=== PATIENT | female | born 1960 | race Caucasian/White ===

== ENCOUNTER 2017-03-09 08:42 | Inpatient (IN) | payer OTHER ==
--- NOTE | 2017-03-09 08:28 | PCM.PREANE ---
Preanesthetic Assessment - Anesthesia/Transfusion/Family Hx Anesthesia History: Prior Anesthesia Without Reaction Family History of Anesthesia Reaction: No Transfusion History: No Prior Transfusion(s) Intubation History: Unknown - Review of Systems General: No Symptoms (cold symptoms include congestion, cough.) Pulmonary: No Symptoms (Unspecified asthma,, TIMMY with CPAP noted), Cough (dry nonproductive) Cardiovascular: Palpitations (occasionally noted.), Dyspnea on Exertion (with use of inhaler noted at this time and symptoms resolve), Lightheadedness ( postural changes.) Gastrointestinal: No Symptoms (GERD), Constipation Neurological: No Symptoms Other: Reports: Easy Bruising, Sinus Problem (chronic rhinitis), Neck Pain ( slightly tender with extension.) - Physical Assessment NPO Status Date: 03/08/17 NPO Status Time: 20:30 Pulse: 81 O2 Sat by Pulse Oximetry: 97 Respiratory Rate: 16 Blood Pressure: 136/86 Temperature: 37.4 C Height: 1.5 m Weight: 95 kg ASA Class: 2 Mental Status: Alert & Oriented x3 Airway Class: Mallampati = 2 Dentition: Reports: Normal Dentition, Caries Thyro-Mental Finger Breadths: 3 Mouth Opening Finger Breadths: 3 ROM/Head Extension: Full Lungs: Clear to Auscultation, Normal Respiratory Effort Cardiovascular: Regular Rate, Regular Rhythm, No Murmurs - Lab Values: Laboratory Last Values MRSA (PCR) Negative 02/24/17 09:57 All lab values reviewed and noted and within acceptable ranges to proceed with scheduled procedure. - Imaging/EKG Impressions: EKG: SR rate=74, low voltage precordial leads CXR: normal - Allergies Allergies/Adverse Reactions: Allergies Allergy/AdvReac Type Severity Reaction Status Date / Time codeine Allergy Vomiting Verified 03/08/17 12:23 ibuprofen Allergy Shortness Verified 03/08/17 12:23 of Breath Penicillins Allergy Hives Verified 03/08/17 12:23 Sulfa (Sulfonamide Allergy Hives Verified 03/08/17 12:23 Antibiotics) - Anesthesia Plan Pre-Op Medication Ordered: None - Acknowledgements Anesthesia Type Planned: Spinal (with MAC) Pt an Appropriate Candidate for the Planned Anesthesia: Yes Alternatives and Risks of Anesthesia Discussed w Pt/Guardian: Yes Pt/Guardian Understands and Agrees with Anesthesia Plan: Yes PreAnesthesia Questionnaire HEENT History: Reports: Allergic Rhinitis Cardiovascular History: Reports: None Respiratory History: Reports: Asthma, Sleep Apnea Gastrointestinal History: Reports: Colon Polyp, GERD, Other (See Below) Other Gastrointestinal History: esophagitis Genitourinary History: Reports: None PICKER/PULLER History: Reports: Other (See Below) Other OB/BYN History: mucous polyp of cervix Other Musculoskeletal History: left radius ulna fracture, heel spur surgery Neurological History: Reports: None Psychiatric History: Reports: None Endocrine/Metabolic History: Reports: None Hematologic History: Reports: None Immunologic History: Reports: None Oncologic (Cancer) History: Reports: None Dermatologic History: Reports: Other (See Below) Other Dermatologic History: periorbital dermatitis - Past Surgical History Head Surgeries/Procedures: Reports: None HEENT Surgical History: Reports: Naso-Sinus Surgery, Tonsillectomy, Other (See Below) Other HEENT Surgeries/Procedures: nasal endoscopy, septoplasty, turbinate reduction, wears glasses Cardiovascular Surgical History: Reports: None Respiratory Surgical History: Reports: None GI Surgical History: Reports: Colonoscopy, EGD Female Surgical History: Reports: D&C Male Surgical History: Reports: None Endocrine Surgical History: Reports: None Neurological Surgical History: Reports: None Musculoskeletal Surgical History: Reports: None Oncologic Surgical History: Reports: None - SUBSTANCE USE Smoking Status *Q: Never Smoker Tobacco Use Within Last Twelve Months: No Second Hand Smoke Exposure: No Recreational Drug Use History: No - HOME MEDS Home Medications: Home Meds Albuterol [Ventolin HFA] 2 puff INH Q4H PRN 03/08/17 [History] Ca Carbonate/Vitamin D3/Vit K [Citracal Soft Chew] 1 tab PO DAILY 03/08/17 [ History] Cetirizine [ZyrTEC] 10 mg PO DAILY 03/08/17 [History] Fluticasone Propionate [Flonase] 2 puff INH DAILY 03/08/17 [History] Multivitamin [Daily Multiple Vitamin] 1 tab PO DAILY 03/08/17 [History] Omeprazole 40 mg PO DAILY 03/08/17 [History] Vit A/C/E AC/Znox/Cupric Oxide [Eye Vitamin-Minerals Tablet] 1 tab PO DAILY 09/17 [History] - CURRENT (IN HOUSE) MEDS Current Meds: Current Medications Bisacodyl (Dulcolax) 5 mg PO DAILY PRN PRN Reason: Constipation Morphine Sulfate 8 mg/Epinephrine HCl 0.3 mg/Cefuroxime Sodium 750 mg/Ketorolac Tromethamine 30 mg/Sodium Chloride 27.9 ml 0 mg .XX ONETIME ONE Stop: 03/09/17 07:11 Docusate Sodium (Colace) 100 mg PO BID [facility] [place] Famotidine (Pepcid) 20 mg PO Q12H [facility] [place] Lactated Ringer's (Ringers, Lactated) 1,000 mls @ 125 mls/hr IV ASDIRECTED [facility] [place] Cefazolin Sodium/Dextrose 2 gm (/ Premix) 50 mls @ 100 mls/hr IV Q8H [facility] Stop: 03/09/17 23:44 Lidocaine/Sodium Bicarbonate (Buffered Lidocaine 1% In Ns 8.4%) 0.25 ml IV ONETIME PRN PRN Reason: Prior to IV Start Magnesium Hydroxide (Milk Of Magnesia) 30 ml PO BID PRN PRN Reason: Constipation Morphine Sulfate (Morphine) 2 mg IVPUSH Q2H PRN PRN Reason: Breakthrough Pain Naloxone HCl (Narcan) 0.1 mg IVPUSH Q5M PRN PRN Reason: Oversedation Ondansetron HCl (Zofran) 4 mg IVPUSH Q6H PRN PRN Reason: Nausea/Vomiting Oxycodone/Acetaminophen (Percocet 325-5 Mg) 1 - 2 tab PO Q4H PRN PRN Reason: Pain Senna (Senna) 8.6 mg PO BID PRN PRN Reason: Constipation Sodium Chloride (Saline Flush) 10 ml FLUSH ASDIRECTED PRN PRN Reason: Keep Vein Open Discontinued Medications Cefazolin Sodium (Ancef) Confirm Administered Dose 2 gm .ROUTE .STK-MED ONE Stop: 03/09/17 07:26 Fentanyl (Sublimaze) Confirm Administered Dose 100 mcg .ROUTE .STK-MED ONE Stop: 03/09/17 07:26 Lidocaine HCl (Xylocaine-Mpf 1%) Confirm Administered Dose 6 mls @ as directed .ROUTE .STK-MED ONE Stop: 03/09/17 07:26 Midazolam HCl (Versed 1 Mg/Ml) Confirm Administered Dose 2 mg .ROUTE .STK-MED ONE Stop: 03/09/17 07:26 Morphine Sulfate (Duramorph Pf) Confirm Administered Dose 10 mg .ROUTE .STK-MED ONE Stop: 03/09/17 07:34 Ondansetron HCl (Zofran) Confirm Administered Dose 4 mg .ROUTE .STK-MED ONE Stop: 03/09/17 07:26 Phenylephrine HCl (Maurice-Synephrine) Confirm Administered Dose 10 mg .ROUTE .STK- MED ONE Stop: 03/09/17 07:26 Propofol (Diprivan 20 Ml) Confirm Administered Dose 400 mg .ROUTE .STK-MED ONE Stop: 03/09/17 07:26
[~2017-03-09 08:42] MED LIST: Bisacodyl 5 MG Tab PO PRN; Lactated Ringers 1,000 ML IV SCH; Lidocaine 1% 6 ML ONE; Lidocaine 1%/Sod Bicarbonate in NS 8.4% 1 ML Syringe IV PRN; Magnesium Hydroxide 400 MG/5 ML Susp 30 ML Cup PO PRN; Midazolam 1 MG/ML 2 ML SDV ONE; Morphine 2 MG/ML Syringe IVPUSH PRN; Morphine PF 10 MG/10 ML SDV ONE; Naloxone 0.4 MG/ML SDV IVPUSH PRN; Ondansetron 4 MG/2 ML SDV IVPUSH PRN; Ondansetron 4 MG/2 ML SDV ONE; Phenylephrine 1% 10 MG/ML SDV ONE; Propofol 200 MG/20 ML SDV ONE; Sennosides 8.6 MG Tab PO PRN; Sodium Chloride 0.9% 10 ML Syringe FLUSH PRN; fentaNYL 100 MCG/2 ML SDV ONE
[2017-03-09] MEDS ORDERED: ceFAZolin 1 GM Vial ONE ×2 (09:02→10:37)
[2017-03-09] MEDS ORDERED: Albuterol 0.083% 2.5 MG/3 ML Neb Soln NEB ONE (09:30)
[2017-03-09] MEDS ORDERED: Morphine 8 MG, EPINEPHrine 0.3 MG, Cefuroxime 750 MG, Ketorolac 30 MG, Sodium Chloride ... ONE ×5 (10:15)
[2017-03-09] MEDS ORDERED: Propofol 200 MG/20 ML SDV ONE ×2 (10:48→11:21)
[2017-03-09] MEDS: Iodine/Sodium Iodide 2% Tincture 30 ML Bottle ONE ×2 (10:50→11:08)
[2017-03-09] MEDS: ceFAZolin 1 GM Vial ONE ×2 (10:51→11:12)
[2017-03-09] MEDS: Bupivacaine 0.25% 30 ML SDV ONE ×2 (10:51→11:18)
[2017-03-09] MEDS: Morphine 8 MG, EPINEPHrine 0.3 MG, Cefuroxime 750 MG, Sodium Chloride 0.9% 27.9 ML ONE ×12 (10:51→13:36)
[2017-03-09] MEDS ORDERED: ePHEDrine 50 MG/ML SDV ONE (11:09)
[2017-03-09] MEDS: Vancomycin 1 GM SDV ONE ×3 (11:19→13:36)
[2017-03-09] MEDS ORDERED: FLU Vacc QS 2017-18 (6mos UP)/PF 60 MCG/0.5 ML Syringe IM ONE (11:45)
[2017-03-09] MEDS ORDERED: fentaNYL 100 MCG/2 ML SDV IVPUSH PRN (12:09)
--- NOTE | 2017-03-09 12:10 | PCM.POSTAN ---
POST ANESTHESIA ASSESSMENT - MENTAL STATUS Mental Status: Alert, Oriented - VITAL SIGNS Pulse Rate: 107 SaO2: 96 Resp Rate: 17 Blood Pressure: 113/44 Temperature: 36.1 C - RESPIRATORY Respiratory Status: Respiratory Rate WNL, Airway Patent, O2 Saturation Stable, Supplemental Oxygen - CARDIOVASCULAR CV Status: Pulse Rate WNL, Blood Pressure Stable - GASTROINTESTINAL GI Status: No Symptoms - PAIN Pain Score: 0 - POST OP HYDRATION Hydration Status: Adequate & Stable - OBSERVATIONS Free Text/Narrative:: no anesthesia complications noted
[2017-03-09] MEDS ORDERED: Albuterol 6.7 GM Inhaler **PTOM INH PRN (13:03)
--- NOTE | 2017-03-09 14:47 | PCM.CONSN ---
- General Info Date of Service: 03/09/17 Admission Dx/Problem (Free Text): 56 year old morbidly obese female presents after left total knee arthroplasty; the patient had a history of OA, L>R. The hospitalist service has been asked to management medical needs post op. At this time, the patient has no complaints. Functional Status: Reports: Pain Controlled, Tolerating Diet, Urinating - Review of Systems General: Reports: No Symptoms HEENT: Reports: No Symptoms Pulmonary: Reports: No Symptoms Cardiovascular: Reports: No Symptoms Gastrointestinal: Reports: Nausea Genitourinary: Reports: No Symptoms Musculoskeletal: Reports: No Symptoms Skin: Reports: No Symptoms Neurological: Reports: No Symptoms Psychiatric: Reports: No Symptoms - Patient Data Vitals - Most Recent: Last Vital Signs Temp 36.4 C 03/09/17 13:23 Pulse 98 03/09/17 12:15 Resp 14 03/09/17 13:00 BP 124/69 03/09/17 13:00 Pulse Ox 97 03/09/17 13:39 Weight - Most Recent: 95 kg I&O - Last 24 Hours: Intake & Output 03/08/17 03/09/17 03/09/17 22:59 06:59 14:59 Intake Total 125 Output Total 275 Balance -150 Med Orders - Current: Current Medications Albuterol (Proventil Hfa) 0 gm INH Q4H PRN PRN Reason: Shortness of Breath Bisacodyl (Dulcolax) 5 mg PO DAILY PRN PRN Reason: Constipation Docusate Sodium (Colace) 100 mg PO BID [facility] Famotidine (Pepcid) 20 mg PO Q12H [facility] Cefazolin Sodium/Dextrose 2 gm (/ Premix) 50 mls @ 100 mls/hr IV Q8H [facility] Stop: 03/10/17 10:59 Magnesium Hydroxide (Milk Of Magnesia) 30 ml PO BID PRN PRN Reason: Constipation Morphine Sulfate (Morphine) 2 mg IVPUSH Q2H PRN PRN Reason: Breakthrough Pain Naloxone HCl (Narcan) 0.1 mg IVPUSH Q5M PRN PRN Reason: Oversedation Ondansetron HCl (Zofran) 4 mg IVPUSH Q6H PRN PRN Reason: Nausea/Vomiting Oxycodone/Acetaminophen (Percocet 325-5 Mg) 1 - 2 tab PO Q4H PRN PRN Reason: Pain Cetirizine 10mg (Tablet) 0 each PO DAILY [facility] Veramyst 27.2mcg/ ([place]) 0 each NASBOTH DAILY [facility] Senna (Senna) 8.6 mg PO BID PRN PRN Reason: Constipation Sodium Chloride (Saline Flush) 10 ml FLUSH ASDIRECTED PRN PRN Reason: Keep Vein Open Discontinued Medications Albuterol (Proventil Neb Soln) 2.5 mg NEB ONETIME ONE Stop: 03/09/17 09:31 Last Admin: 03/09/17 09:18 Dose: 2.5 mg Bupivacaine HCl (Marcaine 0.25%) Confirm Administered Dose 30 ml .ROUTE .STK- MED ONE Stop: 03/09/17 09:03 Last Admin: 03/09/17 11:18 Dose: 30 ml Cefazolin Sodium (Ancef) Confirm Administered Dose 2 gm .ROUTE .STK-MED ONE Stop: 03/09/17 07:26 Last Admin: 03/09/17 11:12 Dose: 2 gm Cefazolin Sodium (Ancef) Confirm Administered Dose 2 gm .ROUTE .STK-MED ONE Stop: 03/09/17 09:03 Cefazolin Sodium (Ancef) Confirm Administered Dose 2 gm .ROUTE .STK-MED ONE Stop: 03/09/17 10:38 Morphine Sulfate 8 mg/Epinephrine HCl 0.3 mg/Cefuroxime Sodium 750 mg/Ketorolac Tromethamine 30 mg/Sodium Chloride 27.9 ml 0 mg .XX ONETIME ONE Stop: 03/09/17 10:16 Morphine Sulfate 8 mg/Epinephrine HCl 0.3 mg/Cefuroxime Sodium 750 mg/Sodium Chloride 27.9 ml 0 mg .XX ONETIME ONE Stop: 03/09/17 10:31 Last Admin: 03/09/17 13:36 Dose: Not Given Ephedrine Sulfate (Ephedrine Sulfate) Confirm Administered Dose 50 mg .ROUTE .STK-MED ONE Stop: 03/09/17 11:10 Fentanyl (Sublimaze) Confirm Administered Dose 100 mcg .ROUTE .STK-MED ONE Stop: 03/09/17 07:26 Fentanyl (Sublimaze) 50 mcg IVPUSH Q5M PRN PRN Reason: PAIN Stop: 03/09/17 14:00 Lactated Ringer's (Ringers, Lactated) 1,000 mls @ 125 mls/hr IV ASDIRECTED [facility] Last Admin: 03/09/17 09:15 Dose: 125 mls/hr Lidocaine HCl (Xylocaine-Mpf 1%) Confirm Administered Dose 6 mls @ as directed .ROUTE .STK-MED ONE Stop: 03/09/17 07:26 Influenza Virus Vaccine (Pharmacy To Dose - Influenza Vaccine) 1 each IM ONETIME ONE Stop: 03/09/17 11:40 Influenza Virus Vaccine (Flulaval Quad [id number]) 60 mcg IM .ONCE ONE Stop: 03/09/17 11:46 Iodine (Iodine 2% Mild Tincture) Confirm Administered Dose 30 ml .ROUTE .STK- MED ONE Stop: 03/09/17 09:03 Last Admin: 03/09/17 11:08 Dose: 18 ml Lidocaine/Sodium Bicarbonate (Buffered Lidocaine 1% In Ns 8.4%) 0.25 ml IV ONETIME PRN PRN Reason: Prior to IV Start Stop: 03/09/17 18:00 Last Admin: 03/09/17 09:14 Dose: 0.25 ml Midazolam HCl (Versed 1 Mg/Ml) Confirm Administered Dose 2 mg .ROUTE .STK-MED ONE Stop: 03/09/17 07:26 Morphine Sulfate (Duramorph Pf) Confirm Administered Dose 10 mg .ROUTE .STK-MED ONE Stop: 03/09/17 07:34 Ondansetron HCl (Zofran) Confirm Administered Dose 4 mg .ROUTE .STK-MED ONE Stop: 03/09/17 07:26 Phenylephrine HCl (Maurice-Synephrine) Confirm Administered Dose 10 mg .ROUTE .STK- MED ONE Stop: 03/09/17 07:26 Propofol (Diprivan 20 Ml) Confirm Administered Dose 400 mg .ROUTE .STK-MED ONE Stop: 03/09/17 07:26 Propofol (Diprivan 20 Ml) Confirm Administered Dose 200 mg .ROUTE .STK-MED ONE Stop: 03/09/17 10:49 Propofol (Diprivan 20 Ml) Confirm Administered Dose 200 mg .ROUTE .STK-MED ONE Stop: 03/09/17 11:22 Tranexamic Acid (Cyklokapron) Confirm Administered Dose 1,000 mg .ROUTE .STK- MED ONE Stop: 03/09/17 09:03 Last Admin: 03/09/17 11:26 Dose: 1,000 mg Vancomycin HCl (Vancomycin) 1 gm .XX ONETIME ONE Stop: 03/09/17 11:01 Last Admin: 03/09/17 13:36 Dose: Not Given - Exam Quality Assessment: Urine Catheter, DVT Prophylaxis General: Alert, Oriented, Cooperative, No Acute Distress HEENT: Pupils Equal, Pupils Reactive, EOMI Neck: Supple, Trachea Midline, No JVD Lungs: Normal Respiratory Effort, Decreased Breath Sounds Cardiovascular: Regular Rate, Regular Rhythm GI/Abdominal Exam: Normal Bowel Sounds, Soft, Non-Tender, No Organomegaly, No Distention (Female) Exam: Deferred Back Exam: Normal Inspection Extremities: Normal Inspection, No Pedal Edema Skin: Warm Wound/Incisions: Dressing Dry and Intact Neurological: No New Focal Deficit Psy/Mental Status: Alert, Normal Affect, Normal Mood Consult PN Assessment/Plan POD#: 0 Procedures: Procedures ELECTRIC CURRENT THERAPY (10/23/14) MANUAL THERAPY 1/> REG[facility] (03/27/15) PT EVALUATION (03/27/15) THERAPEUTIC EXERCISES (04/12/15) ULTRASOUND THERAPY (10/23/14) (1) Status post arthroscopy of left knee SNOMED Code(s): 786642670 Code(s): Z98.890 - OTHER SPECIFIED POSTPROCEDURAL STATES Priority: High Current Visit: Yes (2) Osteoarthritis of left knee SNOMED Code(s): 645646621186993 Code(s): M17.12 - UNILATERAL PRIMARY OSTEOARTHRITIS, LEFT KNEE Priority: High Current Visit: Yes Qualifiers: Osteoarthritis type: primary Qualified Code(s): M17.12 - Unilateral primary osteoarthritis, left knee (3) DJD (degenerative joint disease) of knee SNOMED Code(s): 818666262 Code(s): M17.10 - UNILATERAL PRIMARY OSTEOARTHRITIS, UNSPECIFIED KNEE Current Visit: Yes (4) TIMMY (obstructive sleep apnea) SNOMED Code(s): 91371461 Code(s): G47.33 - OBSTRUCTIVE SLEEP APNEA (ADULT) (PEDIATRIC) Priority: Medium Current Visit: No Problem List Initiated/Reviewed/Updated: Yes Plan: Impression: POD 0, left total knee arthroplasty Osteoarthritis TIMMY Morbid obesity Plan: DVT prophylaxis PT/OT/SW consult Home meds Daily labs
[2017-03-09] MEDS ORDERED: Ondansetron 4 MG/2 ML SDV IVPUSH ONE (15:03)
--- NOTE | 2017-03-09 15:38 | CR ---
Left knee: AP and lateral views of the left knee were obtained. Comparison: No previous study. Knee prosthesis is seen which has been recently placed. Components are aligned. Soft tissue air is identified. Underlying bony structures are intact. Impression: 1. Satisfactory radiographic appearance of recently placed left knee prosthesis. Diagnostic code #2
[2017-03-09] MEDS: ceFAZolin 2 GM in Premix Bag 1 BAG IV SCH (18:13)
[2017-03-09] MEDS ORDERED: diphenhydrAMINE 50 MG/ML SDV ONE (18:38)
[2017-03-09] MEDS: diphenhydrAMINE 50 MG/ML SDV IVPUSH ONE (18:45)
[2017-03-09] MEDS: Famotidine 20 MG Tab PO SCH (19:35)
[2017-03-09] MEDS ORDERED: Scopolamine 1.5 MG Transdermal Patch TRDERM PRN (19:44)
[2017-03-09] MEDS ORDERED: HYDROmorphone 1 MG/ML Syringe IM ONE (20:00)
[2017-03-09] MEDS ORDERED: Lactated Ringers 1,000 ML IV SCH (20:15)
[2017-03-09] MEDS: Promethazine 6.25 MG in Sodium Chloride 0.9% 50 ML IV ONE (20:54)
[2017-03-09] MEDS: Docusate Sodium 100 MG Cap PO SCH (21:36)
[2017-03-09] MEDS: Acetaminophen/oxyCODONE 325-5 MG Tab PO PRN (23:56)
[2017-03-10] MEDS: ceFAZolin 2 GM in Premix Bag 1 BAG IV SCH ×2 (02:30→10:35)
[2017-03-10] MEDS: Promethazine 6.25 MG in Sodium Chloride 0.9% 50 ML IV ONE (03:09)
[2017-03-10] MEDS: Famotidine 20 MG Tab PO SCH ×2 (03:10→08:55)
[2017-03-10] MEDS: Acetaminophen/oxyCODONE 325-5 MG Tab PO PRN ×3 (03:37→12:30)
--- NOTE | 2017-03-10 07:25 | PCM.CONSN ---
- General Info Date of Service: 03/10/17 Admission Dx/Problem (Free Text): Megan is seen this morning, POD #1 Lt TKA. She had nausea overnight, now improved but still there. Pain was increased overnight but improved this morning. She did well with PT per PT reports this am. No other new concerns. VSS. Functional Status: Reports: Pain Controlled, Tolerating Diet, Ambulating, Urinating, Incentive Spirometry. Denies: New Symptoms - Review of Systems General: Reports: No Symptoms HEENT: Reports: No Symptoms Pulmonary: Reports: No Symptoms Cardiovascular: Reports: No Symptoms Gastrointestinal: Reports: Nausea (improved this morning but still present). Denies: Abdominal Pain, Vomiting Genitourinary: Reports: No Symptoms Musculoskeletal: Reports: Leg Pain Skin: Reports: No Symptoms Neurological: Reports: No Symptoms Psychiatric: Reports: No Symptoms - Patient Data Vitals - Most Recent: Last Vital Signs Temp 97.9 F 03/09/17 19:31 Pulse 65 03/10/17 05:00 Resp 16 03/10/17 05:40 BP 139/61 03/10/17 02:32 Pulse Ox 97 03/10/17 05:40 Weight - Most Recent: 209 lb 7.026 oz I&O - Last 24 Hours: Intake & Output 03/09/17 03/10/17 03/10/17 22:59 06:59 14:59 Intake Total 655 3150 Output Total 1000 1200 Balance -345 1950 Med Orders - Current: Current Medications Albuterol (Proventil Hfa) 0 gm INH Q4H PRN PRN Reason: Shortness of Breath Bisacodyl (Dulcolax) 5 mg PO DAILY PRN PRN Reason: Constipation Docusate Sodium (Colace) 100 mg PO BID [facility] Last Admin: 03/09/17 21:36 Dose: Not Given Famotidine (Pepcid) 20 mg PO Q12H [facility] Last Admin: 03/10/17 03:10 Dose: Not Given Cefazolin Sodium/Dextrose 2 gm (/ Premix) 50 mls @ 100 mls/hr IV Q8H [facility] Stop: 03/10/17 10:59 Last Admin: 03/10/17 02:30 Dose: 100 mls/hr Magnesium Hydroxide (Milk Of Magnesia) 30 ml PO BID PRN PRN Reason: Constipation Morphine Sulfate (Morphine) 2 mg IVPUSH Q2H PRN PRN Reason: Breakthrough Pain Naloxone HCl (Narcan) 0.1 mg IVPUSH Q5M PRN PRN Reason: Oversedation Ondansetron HCl (Zofran) 4 mg IVPUSH Q6H PRN PRN Reason: Nausea/Vomiting Last Admin: 03/10/17 00:46 Dose: 4 mg Oxycodone/Acetaminophen (Percocet 325-5 Mg) 1 - 2 tab PO Q4H PRN PRN Reason: Pain Last Admin: 03/10/17 03:37 Dose: 2 tab Cetirizine 10mg (Tablet) 0 each PO DAILY [facility] Veramyst 27.2mcg/ ([place]) 0 each NASBOTH DAILY [facility] Scopolamine (Transderm-Scop) 1.5 mg TRDERM ONETIME PRN PRN Reason: Nausea Last Admin: 03/09/17 20:30 Dose: 1.5 mg Senna (Senna) 8.6 mg PO BID PRN PRN Reason: Constipation Sodium Chloride (Saline Flush) 10 ml FLUSH ASDIRECTED PRN PRN Reason: Keep Vein Open Last Admin: 03/09/17 14:56 Dose: 10 ml Discontinued Medications Albuterol (Proventil Neb Soln) 2.5 mg NEB ONETIME ONE Stop: 03/09/17 09:31 Last Admin: 03/09/17 09:18 Dose: 2.5 mg Bupivacaine HCl (Marcaine 0.25%) Confirm Administered Dose 30 ml .ROUTE .STK- MED ONE Stop: 03/09/17 09:03 Last Admin: 03/09/17 11:18 Dose: 30 ml Cefazolin Sodium (Ancef) Confirm Administered Dose 2 gm .ROUTE .STK-MED ONE Stop: 03/09/17 07:26 Last Admin: 03/09/17 11:12 Dose: 2 gm Cefazolin Sodium (Ancef) Confirm Administered Dose 2 gm .ROUTE .STK-MED ONE Stop: 03/09/17 09:03 Cefazolin Sodium (Ancef) Confirm Administered Dose 2 gm .ROUTE .STK-MED ONE Stop: 03/09/17 10:38 Morphine Sulfate 8 mg/Epinephrine HCl 0.3 mg/Cefuroxime Sodium 750 mg/Ketorolac Tromethamine 30 mg/Sodium Chloride 27.9 ml 0 mg .XX ONETIME ONE Stop: 03/09/17 10:16 Morphine Sulfate 8 mg/Epinephrine HCl 0.3 mg/Cefuroxime Sodium 750 mg/Sodium Chloride 27.9 ml 0 mg .XX ONETIME ONE Stop: 03/09/17 10:31 Last Admin: 03/09/17 13:36 Dose: Not Given Diphenhydramine HCl (Benadryl) 25 mg IVPUSH ONETIME ONE Stop: 03/09/17 18:38 Last Admin: 03/09/17 18:45 Dose: 25 mg Diphenhydramine HCl (Benadryl) Confirm Administered Dose 50 mg .ROUTE .STK-MED ONE Stop: 03/09/17 18:39 Last Admin: 03/10/17 03:07 Dose: Not Given Ephedrine Sulfate (Ephedrine Sulfate) Confirm Administered Dose 50 mg .ROUTE .STK-MED ONE Stop: 03/09/17 11:10 Fentanyl (Sublimaze) Confirm Administered Dose 100 mcg .ROUTE .STK-MED ONE Stop: 03/09/17 07:26 Fentanyl (Sublimaze) 50 mcg IVPUSH Q5M PRN PRN Reason: PAIN Stop: 03/09/17 14:00 Hydromorphone HCl (Dilaudid) 1 mg IM ONETIME ONE Stop: 03/09/17 20:01 Last Admin: 03/09/17 20:32 Dose: 1 mg Lactated Ringer's (Ringers, Lactated) 1,000 mls @ 125 mls/hr IV ASDIRECTED [facility] Last Admin: 03/09/17 09:15 Dose: 125 mls/hr Lidocaine HCl (Xylocaine-Mpf 1%) Confirm Administered Dose 6 mls @ as directed .ROUTE .STK-MED ONE Stop: 03/09/17 07:26 Promethazine HCl 6.25 mg/ (Sodium Chloride) 50.25 mls @ 100 mls/hr IV ONETIME ONE Stop: 03/09/17 19:41 Last Admin: 03/10/17 03:09 Dose: Not Given Lactated Ringer's (Ringers, Lactated) 1,000 mls @ 125 mls/hr IV ASDIRECTED [facility] Stop: 03/10/17 04:14 Last Admin: 03/09/17 20:25 Dose: 125 mls/hr Influenza Virus Vaccine (Pharmacy To Dose - Influenza Vaccine) 1 each IM ONETIME ONE Stop: 03/09/17 11:40 Last Admin: 03/09/17 17:31 Dose: Not Given Influenza Virus Vaccine (Flulaval Quad [id number]) 60 mcg IM .ONCE ONE Stop: 03/09/17 11:46 Iodine (Iodine 2% Mild Tincture) Confirm Administered Dose 30 ml .ROUTE .STK- MED ONE Stop: 03/09/17 09:03 Last Admin: 03/09/17 11:08 Dose: 18 ml Lidocaine/Sodium Bicarbonate (Buffered Lidocaine 1% In Ns 8.4%) 0.25 ml IV ONETIME PRN PRN Reason: Prior to IV Start Stop: 03/09/17 18:00 Last Admin: 03/09/17 09:14 Dose: 0.25 ml Midazolam HCl (Versed 1 Mg/Ml) Confirm Administered Dose 2 mg .ROUTE .STK-MED ONE Stop: 03/09/17 07:26 Morphine Sulfate (Duramorph Pf) Confirm Administered Dose 10 mg .ROUTE .STK-MED ONE Stop: 03/09/17 07:34 Ondansetron HCl (Zofran) Confirm Administered Dose 4 mg .ROUTE .STK-MED ONE Stop: 03/09/17 07:26 Ondansetron HCl (Zofran) 4 mg IVPUSH ONETIME ONE Stop: 03/09/17 15:04 Last Admin: 03/09/17 15:15 Dose: 4 mg Phenylephrine HCl (Maurice-Synephrine) Confirm Administered Dose 10 mg .ROUTE .STK- MED ONE Stop: 03/09/17 07:26 Propofol (Diprivan 20 Ml) Confirm Administered Dose 400 mg .ROUTE .STK-MED ONE Stop: 03/09/17 07:26 Propofol (Diprivan 20 Ml) Confirm Administered Dose 200 mg .ROUTE .STK-MED ONE Stop: 03/09/17 10:49 Propofol (Diprivan 20 Ml) Confirm Administered Dose 200 mg .ROUTE .STK-MED ONE Stop: 03/09/17 11:22 Tranexamic Acid (Cyklokapron) Confirm Administered Dose 1,000 mg .ROUTE .STK- MED ONE Stop: 03/09/17 09:03 Last Admin: 03/09/17 11:26 Dose: 1,000 mg Vancomycin HCl (Vancomycin) 1 gm .XX ONETIME ONE Stop: 03/09/17 11:01 Last Admin: 03/09/17 13:36 Dose: Not Given - Exam Quality Assessment: DVT Prophylaxis General: Alert, Oriented, Cooperative, No Acute Distress HEENT: Pupils Equal, EOMI, Mucous Membr. Moist/[place] Neck: Supple Lungs: Clear to Auscultation, Normal Respiratory Effort Cardiovascular: Regular Rate, Regular Rhythm GI/Abdominal Exam: Normal Bowel Sounds, Soft, Non-Tender (Female) Exam: Deferred Extremities: Normal Capillary Refill, Other (Teds and ice to LE) Peripheral Pulses: 2+: Dorsalis Pedis (L), Dorsalis Pedis (R) Neurological: No New Focal Deficit Psy/Mental Status: Alert, Normal Affect, Normal Mood Consult PN Assessment/Plan POD#: 1 Procedures: Procedures ELECTRIC CURRENT THERAPY (10/23/14) MANUAL THERAPY 1/> [facility] (03/27/15) PT EVALUATION (03/27/15) THERAPEUTIC EXERCISES (04/12/15) ULTRASOUND THERAPY (10/23/14) (1) S/P total knee arthroplasty SNOMED Code(s): 7923632299499, 3128643159497 Code(s): Z96.659 - PRESENCE OF UNSPECIFIED ARTIFICIAL KNEE JOINT Priority: High Current Visit: Yes Qualifiers: Laterality: left Qualified Code(s): Z96.652 - Presence of left artificial knee joint (2) Osteoarthritis of left knee SNOMED Code(s): 431282289770046 Code(s): M17.12 - UNILATERAL PRIMARY OSTEOARTHRITIS, LEFT KNEE Priority: High Current Visit: Yes Qualifiers: Osteoarthritis type: primary Qualified Code(s): M17.12 - Unilateral primary osteoarthritis, left knee (3) TIMMY (obstructive sleep apnea) SNOMED Code(s): 88795368 Code(s): G47.33 - OBSTRUCTIVE SLEEP APNEA (ADULT) (PEDIATRIC) Priority: Medium Current Visit: No Problem List Initiated/Reviewed/Updated: Yes Plan: I/P: S/P Lt TKA with Dr. Doshi, POD #1 -Pain management and DVT prophylax per primary team -PT/OT -RT/IS -Hgb 11.2 Postoperative nausea -Improved but still present -Will rx zofran for DC Chronic: TIMMY on cpap Other: GI prophylax CM/SW for assist with DC planning: patient doing well, plan for DC home from Hospitalist standpoint today with family if does well with PT/OT this morning and nausea is under control. Patient is Full Code status.
[2017-03-10] MEDS ORDERED: Ondansetron 4 MG Tab.DIS PO PRN (08:48)
[2017-03-10] MEDS: Docusate Sodium 100 MG Cap PO SCH (08:55)
[2017-03-10] MEDS ORDERED: CETIRIZINE 10MG TABLET PO SCH (09:00)
[2017-03-10] MEDS ORDERED: FLUTICASONE FUROATE NASBOTH SCH (09:00)
[2017-03-10] MEDS ORDERED: Aspirin 325 MG Tab.EC PO SCH (11:15)
[2017-03-10 12:43] VITALS: BP 133/68
--- NOTE | 2017-03-10 13:52 | PCM48HPAN ---
Post Anesthesia Note - EVALUATION WITHIN 48HRS OF ANESTHETIC Vital Signs in Normal Range: Yes Patient Participated in Evaluation: No (pt sleeping, no complaints from report from RN) Respiratory Function Stable: Yes Airway Patent: Yes Cardiovascular Function Stable: Yes Hydration Status Stable: Yes Pain Control Satisfactory: Yes Nausea and Vomiting Control Satisfactory: Yes Mental Status Recovered: Yes
--- NOTE | 2017-03-11 06:29 | PCM.DCSUM1 ---
Discharge Summary - Hospital Course Brief History: Megan is a 56 yo female who underwent left TKA with Dr. Doshi on 03-09-17. The procedure was completed under spinal anesthesia with MAC. The pt tolerated the procedure well and was admitted to the [facility] under Medical- Surgical status. The pt received Ancef cari-operatively. She participated in P.T. and O.T. and progressed well. She was allowed to WBAT and used a FWW for mobility. The pt's surgical wound was dressed with a Mepilex dressing and remained clean and dry. On POD#1, the pt was started on 325mg ASA BID for VTE prophylaxis. The pt used TEDs and SCDs also. On POD#1, the pt's hemoglobin was 11.2. Medial management was provided by the Hospitalist service and the pt' s hospital course was uneventful. On POD#1, the pt was deemed appropriate for discharge to home with family. - Discharge Data Discharge Date: 03/10/17 Discharge Disposition: Home, Self-Care 01 Condition: Good - Patient Summary/Data Consults: Consultations 03/09/17 07:10 Consult to Physician [CONS] Routine OT Evaluation and Treatment [CONS] Routine 03/09/17 07:17 PT Evaluation and Treatment [CONS] Routine - Patient Instructions Diet: Usual Diet as Tolerated Activity: Apply Ice, As Tolerated, Elevate Extremity, Full Weight Bearing Driving: Do Not Drive Showering/Bathing: May Shower Wound/Incision Care: Keep Operative Site/Wound Site Clean and Dry, Do NOT Change Dressing Notify Provider of: Fever, Increased Pain, Swelling and Redness, Drainage, Nausea and/or Vomiting Other/Special Instructions: Please get up and moving around every hour while awake. This helps to prevent blood clots. Please take 325mg aspirin twice daily - this also helps to prevent blood clots. The medication is being used for blood clot prevention and not for pain control, so please use the medication twice daily as directed. Please wear the WILNER hose during the day and you may remove them at night. Please schedule for P.T. Complete the P.T. exercises and stretches that were instructed in the Hospital. Please use the pain medication and muscle relaxant as needed. The medication may cause drowsiness and/or constipation. You could use a stool softener like docusate sodium or Colace 100mg twice daily and/or a laxative like polyethylene glycol or Miralax daily for constipation. Contact your primary care provider for further instructions if you are constipated. Please schedule an appointment with your primary care provider for 'routine post-op care'. Use the incentive spirometer often. Please place ice to the knee often. Please elevate the limb to decrease swelling. Keep the Mepilex dressing in place until follow-up. Please call [phone] with questions or concerns. - Discharge Plan Prescriptions/Med Rec: Acetaminophen/oxyCODONE [Percocet 325-5 MG] 1 - 2 tab PO Q4H PRN #60 tablet PRN Reason: Pain Docusate Sodium [Colace] 100 mg PO BID PRN #30 cap PRN Reason: Constipation Ondansetron [Zofran ODT] 4 mg PO Q4H #30 tab.dis Home Medications: Home Meds Albuterol [Ventolin HFA] 2 puff INH Q4H PRN 03/08/17 [History] Ca Carbonate/Vitamin D3/Vit K [Citracal Soft Chew] 1 tab PO DAILY 03/08/17 [ History] Cetirizine [ZyrTEC] 10 mg PO DAILY 03/08/17 [History] Multivitamin [Daily Multiple Vitamin] 1 tab PO DAILY 03/08/17 [History] Omeprazole 40 mg PO DAILY 03/08/17 [History] Vit A/C/E AC/Znox/Cupric Oxide [Eye Vitamin-Minerals Tablet] 1 tab PO DAILY 09/17 [History] Fluticasone Furoate [Flonase Sensimist] 2 sprays NASBOTH DAILY 03/09/17 [History ] Acetaminophen/oxyCODONE [Percocet 325-5 MG] 1 - 2 tab PO Q4H PRN #60 tablet 11/17 [Rx] Docusate Sodium [Colace] 100 mg PO BID PRN #30 cap 03/10/17 [Rx] Ondansetron [Zofran ODT] 4 mg PO Q4H #30 tab.dis 03/10/17 [Rx] Patient Handouts: Total Knee Replacement, Care After, [id number], Hand Washing, [id number]-hk-[id number], Total Knee Replacement, [id number], Surgical Site Infections FAQs - BAI, Aspirin, ASA oral tablets, Knee Rehabilitation Guidelines Following Surgery Referrals: Piedad Blake PA-C [Physician Electric Shovel Operator] - 03/17/17 9:00 am Matt Harp MD [Primary Care Provider] - - Patient Data Vitals - Most Recent: Last Vital Signs Temp 98.6 F 03/10/17 12:00 Pulse 99 03/10/17 08:56 Resp 17 03/10/17 13:00 BP 133/68 03/10/17 12:00 Pulse Ox 98 03/10/17 13:00 Weight - Most Recent: 209 lb 7.026 oz I&O - Last 24 hours: Intake & Output 03/10/17 03/10/17 03/11/17 14:59 22:59 06:59 Intake Total 240 240 Output Total 550 Balance -310 240 Lab Results - Last 24 hrs: Laboratory Results - last 24 hr 03/10/17 03/10/17 Range/Units 07:15 07:15 WBC 10.46 H (3.98-10.04) K/mm3 RBC 4.16 (3.98-5.22) M/mm3 Hgb 11.2 (11.2-15.7) gm/L Hct 35.5 (34.1-44.9) % MCV 85.3 (79.4-94.8) fl MCH 26.9 (25.6-32.2) pg MCHC 31.5 L (32.2-35.5) g/dl RDW Std Deviation 42.2 (36.4-46.3) fL Plt Count 240 (182-369) K/mm3 MPV 9.4 (9.4-12.3) fl Sodium 135 L (136-145) mEq/L Potassium 3.4 L (3.5-5.1) mEq/L Chloride 100 (98-107) mEq/L Carbon Dioxide 29 (21-32) mEq/L Anion Gap 9.4 (5-15) BUN 11 (7-18) mg/dL Creatinine 0.8 (0.55-1.02) mg/dL Est Cr Clr Drug Dosing 57.07 mL/min Estimated GFR (MDRD) > 60 (>60) mL/min BUN/Creatinine Ratio 13.8 L (14-18) Glucose 113 H (74-106) mg/dL Calcium 8.7 (8.5-10.1) mg/dL Total Bilirubin 0.4 (0.2-1.0) mg/dL AST 16 (15-37) U/L ALT 27 (14-59) U/L Alkaline Phosphatase 67 (46-116) U/L Total Protein 6.2 L (6.4-8.2) g/dl Albumin 2.9 L (3.4-5.0) g/dl Globulin 3.3 gm/dL Albumin/Globulin Ratio 0.9 L (1-2) Med Orders - Current: Current Medications Discontinued Medications Albuterol (Proventil Neb Soln) 2.5 mg NEB ONETIME ONE Stop: 03/09/17 09:31 Last Admin: 03/09/17 09:18 Dose: 2.5 mg Albuterol (Proventil Hfa) 0 gm INH Q4H PRN PRN Reason: Shortness of Breath Aspirin (Ecotrin) 325 mg PO BID ANNIE Last Admin: 03/10/17 12:30 Dose: 325 mg Bisacodyl (Dulcolax) 5 mg PO DAILY PRN PRN Reason: Constipation Bupivacaine HCl (Marcaine 0.25%) Confirm Administered Dose 30 ml .ROUTE .STK- MED ONE Stop: 03/09/17 09:03 Last Admin: 03/09/17 11:18 Dose: 30 ml Cefazolin Sodium (Ancef) Confirm Administered Dose 2 gm .ROUTE .STK-MED ONE Stop: 03/09/17 07:26 Last Admin: 03/09/17 11:12 Dose: 2 gm Cefazolin Sodium (Ancef) Confirm Administered Dose 2 gm .ROUTE .STK-MED ONE Stop: 03/09/17 09:03 Cefazolin Sodium (Ancef) Confirm Administered Dose 2 gm .ROUTE .STK-MED ONE Stop: 03/09/17 10:38 Morphine Sulfate 8 mg/Epinephrine HCl 0.3 mg/Cefuroxime Sodium 750 mg/Ketorolac Tromethamine 30 mg/Sodium Chloride 27.9 ml 0 mg .XX ONETIME ONE Stop: 03/09/17 10:16 Morphine Sulfate 8 mg/Epinephrine HCl 0.3 mg/Cefuroxime Sodium 750 mg/Sodium Chloride 27.9 ml 0 mg .XX ONETIME ONE Stop: 03/09/17 10:31 Last Admin: 03/09/17 13:36 Dose: Not Given Diphenhydramine HCl (Benadryl) 25 mg IVPUSH ONETIME ONE Stop: 03/09/17 18:38 Last Admin: 03/09/17 18:45 Dose: 25 mg Diphenhydramine HCl (Benadryl) Confirm Administered Dose 50 mg .ROUTE .STK-MED ONE Stop: 03/09/17 18:39 Last Admin: 03/10/17 03:07 Dose: Not Given Docusate Sodium (Colace) 100 mg PO BID [facility] Last Admin: 03/10/17 08:55 Dose: 100 mg Ephedrine Sulfate (Ephedrine Sulfate) Confirm Administered Dose 50 mg .ROUTE .STK-MED ONE Stop: 03/09/17 11:10 Famotidine (Pepcid) 20 mg PO Q12H [facility] Last Admin: 03/10/17 08:55 Dose: Not Given Fentanyl (Sublimaze) Confirm Administered Dose 100 mcg .ROUTE .STK-MED ONE Stop: 03/09/17 07:26 Fentanyl (Sublimaze) 50 mcg IVPUSH Q5M PRN PRN Reason: PAIN Stop: 03/09/17 14:00 Hydromorphone HCl (Dilaudid) 1 mg IM ONETIME ONE Stop: 03/09/17 20:01 Last Admin: 03/09/17 20:32 Dose: 1 mg Lactated Ringer's (Ringers, Lactated) 1,000 mls @ 125 mls/hr IV ASDIRECTED [facility] Last Admin: 03/09/17 09:15 Dose: 125 mls/hr Lidocaine HCl (Xylocaine-Mpf 1%) Confirm Administered Dose 6 mls @ as directed .ROUTE .STK-MED ONE Stop: 03/09/17 07:26 Cefazolin Sodium/Dextrose 2 gm (/ Premix) 50 mls @ 100 mls/hr IV Q8H [facility] Stop: 03/10/17 10:59 Last Admin: 03/10/17 10:35 Dose: 100 mls/hr Promethazine HCl 6.25 mg/ (Sodium Chloride) 50.25 mls @ 100 mls/hr IV ONETIME ONE Stop: 03/09/17 19:41 Last Admin: 03/10/17 03:09 Dose: Not Given Lactated Ringer's (Ringers, Lactated) 1,000 mls @ 125 mls/hr IV ASDIRECTED [facility] Stop: 03/10/17 04:14 Last Admin: 03/09/17 20:25 Dose: 125 mls/hr Influenza Virus Vaccine (Pharmacy To Dose - Influenza Vaccine) 1 each IM ONETIME ONE Stop: 03/09/17 11:40 Last Admin: 03/09/17 17:31 Dose: Not Given Influenza Virus Vaccine (Flulaval Quad [id number]) 60 mcg IM .ONCE ONE Stop: 03/09/17 11:46 Last Admin: 03/10/17 16:11 Dose: Not Given Iodine (Iodine 2% Mild Tincture) Confirm Administered Dose 30 ml .ROUTE .STK- MED ONE Stop: 03/09/17 09:03 Last Admin: 03/09/17 11:08 Dose: 18 ml Lidocaine/Sodium Bicarbonate (Buffered Lidocaine 1% In Ns 8.4%) 0.25 ml IV ONETIME PRN PRN Reason: Prior to IV Start Stop: 03/09/17 18:00 Last Admin: 03/09/17 09:14 Dose: 0.25 ml Magnesium Hydroxide (Milk Of Magnesia) 30 ml PO BID PRN PRN Reason: Constipation Midazolam HCl (Versed 1 Mg/Ml) Confirm Administered Dose 2 mg .ROUTE .STK-MED ONE Stop: 03/09/17 07:26 Morphine Sulfate (Morphine) 2 mg IVPUSH Q2H PRN PRN Reason: Breakthrough Pain Morphine Sulfate (Duramorph Pf) Confirm Administered Dose 10 mg .ROUTE .STK-MED ONE Stop: 03/09/17 07:34 Naloxone HCl (Narcan) 0.1 mg IVPUSH Q5M PRN PRN Reason: Oversedation Ondansetron HCl (Zofran) Confirm Administered Dose 4 mg .ROUTE .STK-MED ONE Stop: 03/09/17 07:26 Ondansetron HCl (Zofran) 4 mg IVPUSH Q6H PRN PRN Reason: Nausea/Vomiting Last Admin: 03/10/17 00:46 Dose: 4 mg Ondansetron HCl (Zofran) 4 mg IVPUSH ONETIME ONE Stop: 03/09/17 15:04 Last Admin: 03/09/17 15:15 Dose: 4 mg Ondansetron HCl (Zofran Odt) 4 mg PO Q4H PRN PRN Reason: Nausea/Vomiting Last Admin: 03/10/17 09:01 Dose: 4 mg Oxycodone/Acetaminophen (Percocet 325-5 Mg) 1 - 2 tab PO Q4H PRN PRN Reason: Pain Last Admin: 03/10/17 12:30 Dose: 2 tab Cetirizine 10mg (Tablet) 0 each PO DAILY ANNIE Last Admin: 03/10/17 08:55 Dose: 1 each Veramyst 27.2mcg/ (Oran) 0 each NASBOTH DAILY ANNIE Last Admin: 03/10/17 08:55 Dose: 2 each Phenylephrine HCl (Maurice-Synephrine) Confirm Administered Dose 10 mg .ROUTE .STK- MED ONE Stop: 03/09/17 07:26 Propofol (Diprivan 20 Ml) Confirm Administered Dose 400 mg .ROUTE .STK-MED ONE Stop: 03/09/17 07:26 Propofol (Diprivan 20 Ml) Confirm Administered Dose 200 mg .ROUTE .STK-MED ONE Stop: 03/09/17 10:49 Propofol (Diprivan 20 Ml) Confirm Administered Dose 200 mg .ROUTE .STK-MED ONE Stop: 03/09/17 11:22 Scopolamine (Transderm-Scop) 1.5 mg TRDERM ONETIME PRN PRN Reason: Nausea Last Admin: 03/09/17 20:30 Dose: 1.5 mg Senna (Senna) 8.6 mg PO BID PRN PRN Reason: Constipation Sodium Chloride (Saline Flush) 10 ml FLUSH ASDIRECTED PRN PRN Reason: Keep Vein Open Last Admin: 03/09/17 14:56 Dose: 10 ml Tranexamic Acid (Cyklokapron) Confirm Administered Dose 1,000 mg .ROUTE .STK- MED ONE Stop: 03/09/17 09:03 Last Admin: 03/09/17 11:26 Dose: 1,000 mg Vancomycin HCl (Vancomycin) 1 gm .XX ONETIME ONE Stop: 03/09/17 11:01 Last Admin: 03/09/17 13:36 Dose: Not Given *Q Meaningful Use (DIS) - VTE *Q VTE Criteria *Q: - Stroke *Q Stroke Criteria *Q: - AMI *Q AMI Criteria *Q:
--- NOTE | 2017-03-18 21:53 | PCM.OPNOTE ---
- General Post-Op/Procedure Note Date of Surgery/Procedure: 03/09/17 Operative Procedure(s): left total knee arthroplasty Pre Op Diagnosis: left knee osteoarthrosis Post-Op Diagnosis: Same Anesthesia Technique: Local, MAC, Spinal Primary Surgeon: Misha Doshi Anesthesia Provider: Cristian Jamil Biology Research Assistant: Piedad Blake Biology Research Assistant: Jess Elliott EBL in mLs: 200 Complications: None Condition: Good
--- NOTE | 2017-03-18 22:20 | OR ---
DATE OF OPERATION: 03/09/2017 SURGEON: Misha Doshi MD OPERATION PERFORMED: Left total knee arthroplasty. PREOPERATIVE DIAGNOSIS: Left knee osteoarthrosis. POSTOPERATIVE DIAGNOSIS: Left knee osteoarthrosis. ANESTHESIA: Local MAC with spinal. ANESTHESIA PROVIDER: Cristian Jamil CRNA WATER CONSERVATION SPECIALIST: Piedad Blake PA-C, and Jess Elliott LPN. ESTIMATED BLOOD LOSS: 200 mL. COMPLICATIONS: None. CONDITION: Stable. IMPLANTS: 1. Columbia size 5 press-fit PS femur. 2. Mal size 4 press-fit universal tibial baseplate. 3. Mal size 4 PS X3 9 mm polyethylene. 4. Columbia 32 x 10 mm press-fit patella. DESCRIPTION OF PROCEDURE: The patient was identified in the preop holding area. Proper site was marked and identified by the surgeon. The patient was taken back to the operating theater. After adequate anesthesia, the patient's left lower extremity had a nonsterile tourniquet applied and it was then sterilely prepped and draped in the usual sterile fashion. OR timeout was performed. The patient received 2 g IV Ancef. At this time, left lower extremity was exsanguinated. Tourniquet was insufflated to 300 mmHg. Standard medial parapatellar incision was made. Medial parapatellar arthrotomy was created. Deep fibers of the MCL were raised and anterior fat pad was resected. At this time, attention was turned to the patella. Patella measured 24, it was resected to a 14 for a 32 x 10 mm patella. Drill holes were then drilled and found to be in adequate position. The drill was then drilled in the distal femur and the intramedullary distal femoral cutting guide was then placed. 8 mm was resected off the distal femur and was found to be an adequate resection. Sizing guide was placed. It was found to be a size 9 mm trial spacer was shown on the implant record at the beginning of this dictation. The drill holes were drilled for the epicondylar axis using Whitesides line and epicondyles as reference. At this time, the 4-in-1 cutting block was placed. An anterior posterior and anterior and posterior chamfer cuts were then completed. The correct size box cut was then placed and the box cut was completed and found to be an adequate resection. Attention was turned to the tibia. The posterior medial lateral retractors were placed. The extramedullary tibial guide was placed. It was placed in the old footprint of the ACL. It was aligned with the center of the ankle and 0 degrees of slope, 9 mm was then resected off the unaffected lateral side. There was found to be an acceptable reduction. At this time, posterior osteophytes were removed along with medial and lateral meniscus. A trial implant was placed with a correct sized tibia that was mentioned at the beginning of the dictation. A 9 mm PS X3 polyethylene was then placed. The patient's knee was brought through range of motion. The patella was tracking centrally and was stable to varus and valgus stress. Alignment was found to be roughly at 0 degrees. The tibia was stamped and drilled in proper rotation. The universal tibial base plate was impacted into place. Next, the 9 mm press fit femur was impacted into place and the 9 mm PS X3 polyethylene was placed. The patient's knee was brought into full extension. The patella was then press-fit into place at this time. Tourniquet was deflated. One liter dilute Betadine solution was irrigated through the knee along with 3 L of pulse lavage irrigation with Ancef. Periarticular injection was then completed. The patient's knee was brought through a range of motion. Once the cement had time to set up and it was found to be stable to varus valgus stress, the patella was tracking centrally with full range of motion. At this time, a #2 barbed suture was used for closure of the medial parapatellar arthrotomy. Topical tranexamic acid was placed. 2-0 Vicryl was used subcutaneously, a running 3-0 Monocryl was used subcuticularly. The patient tolerated the procedure well and was sent to the PACU in stable condition. BELINDA /[id number] JUAN PABLO
== END 2017-03-10 15:36 | disposition home or self-care (01) | DRG 470 ==
LOC: JD.MS 08:42 → JD.OB 08:56
PROVIDERS: ADMIT Orthopaedic Surgery; ATTEND Orthopaedic Surgery
PROC: 0SRD0J9 Replacement of Left Knee Joint with Synthetic Substitute, Cemented, Open Approach (ICD-10-PCS; principal; 2017-03-09)
DX: M17.0 Bilateral primary osteoarthritis of knee (principal); R11.0 Nausea; J45.909 Unspecified asthma, uncomplicated; K21.9 Gastro-esophageal reflux disease without esophagitis; G47.33 Obstructive sleep apnea (adult) (pediatric); E66.01 Morbid (severe) obesity due to excess calories; Z68.33 Body mass index [BMI] 33.0-33.9, adult; Z88.5 Allergy status to narcotic agent; Z88.0 Allergy status to penicillin; Z88.2 Allergy status to sulfonamides; Z79.899 Other long term (current) drug therapy
CPT/HCPCS: 01214; 36415; 73560-26-LT; 73560-LT; 80053; 85027; 87641; 94640; 94762; 97110-GP; 97116-GP; 97161-GP; 97166-GO; 97535-GO; 99231; A9270-GY; C1776; J0171; J0690; J0697; J1170; J1200; J2250; J2270; J2370; J2405; J2550; J2704; J3010; J3370; J3490; J7050; J7120

== ENCOUNTER 2017-10-10 15:38 | Emergency (ER) | payer OTHER ==
--- NOTE | 2017-10-10 16:16 | EDM.PDOC ---
ED HPI GENERAL MEDICAL PROBLEM - General Chief Complaint: Skin Complaint Stated Complaint: SKIN COMPLAINT-CHEST Time Seen by Provider: 10/10/17 15:52 Source of Information: Reports: Patient History Limitations: Reports: No Limitations - History of Present Illness INITIAL COMMENTS - FREE TEXT/NARRATIVE: 56-year-old female presents for evaluation treatment of a tender red an area to her chest. Reports that this first started about a week ago. She states about 4 days ago she appreciated some tenderness the area. She has now developed erythema and a small lump underneath the skin. She has been using topical antibiotics and heat but continues to have discomfort. Denies any fevers, chills , nausea or vomiting. No drainage from the area. Has not appreciated any swollen lymph nodes. Last mammogram was approximately one year ago. MAJOR ACCOUNT REPRESENTATIVE is Dr. Levin. Left Breast Pain Score (Numeric/FACES): 2 - Related Data Allergies Allergy/AdvReac Type Severity Reaction Status Date / Time codeine Allergy Vomiting Verified 03/08/17 12:23 ibuprofen Allergy Shortness Verified 03/08/17 12:23 of Breath Penicillins Allergy Hives Verified 03/08/17 12:23 Sulfa (Sulfonamide Allergy Hives Verified 03/08/17 12:23 Antibiotics) Home Meds: Home Meds Albuterol [Ventolin HFA] 2 puff INH Q4H PRN 03/08/17 [History] Ca Carbonate/Vitamin D3/Vit K [Citracal Soft Chew] 1 tab PO DAILY 03/08/17 [ History] Cetirizine [ZyrTEC] 10 mg PO DAILY 03/08/17 [History] Multivitamin [Daily Multiple Vitamin] 1 tab PO DAILY 03/08/17 [History] Omeprazole 40 mg PO DAILY 03/08/17 [History] Vit A/C/E AC/Znox/Cupric Oxide [Eye Vitamin-Minerals Tablet] 1 tab PO DAILY 09/17 [History] Fluticasone Furoate [Flonase Sensimist] 2 sprays NASBOTH DAILY 03/09/17 [History ] Doxycycline [Vibramycin] 100 mg PO BID #20 cap 10/10/17 [Rx] Past Medical History HEENT History: Reports: Allergic Rhinitis Cardiovascular History: Reports: None Respiratory History: Reports: Asthma, Sleep Apnea Gastrointestinal History: Reports: Colon Polyp, GERD, Other (See Below) Other Gastrointestinal History: esophagitis Genitourinary History: Reports: None MAJOR ACCOUNT REPRESENTATIVE History: Reports: Other (See Below) Other OB/BYN History: mucous polyp of cervix Other Musculoskeletal History: left radius ulna fracture, heel spur surgery Neurological History: Reports: None Psychiatric History: Reports: None Endocrine/Metabolic History: Reports: None Hematologic History: Reports: None Immunologic History: Reports: None Oncologic (Cancer) History: Reports: None Dermatologic History: Reports: Other (See Below) Other Dermatologic History: periorbital dermatitis - Past Surgical History Head Surgeries/Procedures: Reports: None HEENT Surgical History: Reports: Naso-Sinus Surgery, Tonsillectomy, Other (See Below) Other HEENT Surgeries/Procedures: nasal endoscopy, septoplasty, turbinate reduction, wears glasses Cardiovascular Surgical History: Reports: None Respiratory Surgical History: Reports: None GI Surgical History: Reports: Colonoscopy, EGD Female Surgical History: Reports: D&C Endocrine Surgical History: Reports: None Neurological Surgical History: Reports: None Musculoskeletal Surgical History: Reports: None Oncologic Surgical History: Reports: None Social & Family History - Tobacco Use Smoking Status *Q: Never Smoker - Caffeine Use Caffeine Use: Reports: None - Recreational Drug Use Recreational Drug Use: No ED ROS GENERAL - Review of Systems Review Of Systems: See Below Constitutional: Denies: Fever, Chills GI/Abdominal: Denies: Nausea, Vomiting Skin: Reports: Lumps (left anterior breast ) Hematologic/Lymphatic: Denies: Swollen Glands ED EXAM, SKIN/RASH Exam: See Below Exam Limited By: No Limitations General Appearance: Alert, WD/WN, No Apparent Distress Respiratory/Chest: No Respiratory Distress, Lungs Clear, Normal Breath Sounds Cardiovascular: Normal Peripheral Pulses, Regular Rate, Rhythm, No Murmur Extremities: Other (no axillary lymph nodes appreciated ) Neurological: Alert, Oriented, Normal Cognition Psychiatric: Normal Affect, Normal Mood Skin: Warm, Dry, Erythema (approximately 3 cm in diameter area of erythema to the left breast near the chest wall at the 11 o clock position, 2cm cystic, movable, tender area felt underneath the erytehma, no drainage) Location, Skin: Chest Associated features: Tenderness. No: Warmth, Weeping Course - Vital Signs Last Recorded V/S: Last Vital Signs Temp 98.1 F 10/10/17 16:32 Pulse 93 10/10/17 16:32 Resp 20 06/09/18 15:49 BP 146/85 H 10/10/17 16:32 Pulse Ox 96 10/10/17 16:32 - Re-Assessments/Exams Free Text/Narrative Re-Assessment/Exam: 10/10/17 16:09 appears to be an infected cyst with overlying cellulitis. No axillary lymph nodes appreciated. Patient warned on rare occasions breast cancer can present this way. Stressed improtance of follow-up. Patient reports she has had cyst in the past. Discharge instructions as documented. Departure - Departure Time of Disposition: 16:12 Disposition: Home, Self-Care 01 Condition: Fair Clinical Impression: Cellulitis, Cyst (solitary) of breast - Discharge Information Prescriptions: Doxycycline [Vibramycin] 100 mg PO BID #20 cap Referrals: Matt Harp MD [Primary Care Provider] - Forms: ED Department Discharge Additional Instructions: [id number] Tylenol as needed for discomfort. Recommend using a warm compress to the area 3 or 4 times a day for about 10-15 minutes. Doxycycline 1 Twice a day for 10 days. This medication can cause photosensitivity. Avoid sunlight, if you are in the sun make sure you're wearing sunscreen. Recommend taking doxycycline with food. He may also try yogurt or probiotic to help reduce side effects is upset stomach, nausea and diarrhea. Follow-up either surgery or your OB within 2 weeks for recheck as well as to possibly have the cyst removed. Recommend Dr. Smith at the [facility]. Call [phone] to schedule with him. Please return the ER if your symptoms change or worsen.
[2017-10-10 16:33] VITALS: BP 146/85
== END 2017-10-10 16:26 | disposition home or self-care (01) ==
LOC: JD.ED 15:38
DX: N60.02 Solitary cyst of left breast (principal); N61.0 Mastitis without abscess; J45.909 Unspecified asthma, uncomplicated; K21.9 Gastro-esophageal reflux disease without esophagitis; Z88.5 Allergy status to narcotic agent; Z88.6 Allergy status to analgesic agent; Z88.0 Allergy status to penicillin; Z88.2 Allergy status to sulfonamides; Z79.899 Other long term (current) drug therapy
CPT/HCPCS: 99283

== ENCOUNTER 2023-02-21 20:46 | Emergency (ER) | payer BC ==
[2023-02-21 21:16] VITALS: BP 181/99; PULSE 95
[2023-02-21] MEDS ORDERED: diphenhydrAMINE 25 MG Cap PO ONE (21:43)
== END 2023-02-21 22:00 | disposition home or self-care (01) ==
LOC: JD.ED 20:46
DX: L03.221 Cellulitis of neck (principal); L29.8 Other pruritus; K21.9 Gastro-esophageal reflux disease without esophagitis; J45.909 Unspecified asthma, uncomplicated; Z88.0 Allergy status to penicillin; Z88.2 Allergy status to sulfonamides; Z88.5 Allergy status to narcotic agent; Z88.8 Allergy status to other drugs, medicaments and biological substances; Z79.82 Long term (current) use of aspirin; Z79.899 Other long term (current) drug therapy
CPT/HCPCS: 99283; A9270

== ENCOUNTER 2023-02-24 19:39 | Emergency (ER) | payer BC ==
[2023-02-24 20:46] VITALS: BP 170/82; PULSE 84
== END 2023-02-24 20:57 | disposition home or self-care (01) ==
LOC: JD.ED 19:39
DX: L25.9 Unspecified contact dermatitis, unspecified cause (principal); K21.9 Gastro-esophageal reflux disease without esophagitis; Z86.16 Personal history of COVID-19; Z91.048 Other nonmedicinal substance allergy status; Z88.0 Allergy status to penicillin; Z88.2 Allergy status to sulfonamides; Z88.5 Allergy status to narcotic agent; Z79.82 Long term (current) use of aspirin; Z79.899 Other long term (current) drug therapy
CPT/HCPCS: 99283; 99284

== ENCOUNTER 2023-08-27 13:33 | Emergency (ER) | payer BC ==
[2023-08-27 16:10] LABS: APPEARANCE,URINE CLEAR (Clear); BILIRUBIN,URINE NEGATIVE (Negative); COLOR,URINE YELLOW (Yellow); GLUCOSE,URINE NEGATIVE (Negative); KETONES,URINE NEGATIVE (Negative); LEUKOCYTE ESTERASE,URINE TRACE (Negative); NITRITE,URINE NEGATIVE (Negative); OCCULT BLOOD,URINE NEGATIVE (Negative); PROTEIN,URINE NEGATIVE (Negative); UROBILINOGEN,URINE 0.2 (0.2-1.0)
[2023-08-27] MEDS: Sodium Chloride 0.9% 1,000 ML IV ONE (16:11)
[2023-08-27] MEDS: Aluminum Hydroxide/Magnesium Hydroxide/Simethicone Susp 30 ML Cup PO ONE (16:12)
[2023-08-27] MEDS: Famotidine 20 MG/2 ML SDV IVPUSH ONE (16:12)
[2023-08-27] MEDS: Ondansetron 4 MG/2 ML SDV IVPUSH ONE (16:13)
[2023-08-27 16:15] LABS: BASOPHILS ABSOLUTE AUTO 0.1 K/mm3 (0.0-0.2); BASOPHILS PERCENT AUTO 0.7 % (0.0-1.0); EOSINOPHILS ABSOLUTE AUTO 0.3 K/mm3 (0.0-0.4); EOSINOPHILS PERCENT AUTO 3.9 % (0.0-6.0); HEMATOCRIT 42.7 % (37.0-47.0); HEMOGLOBIN 14.1 gm/dl (12.0-16.0); IMMATURE GRAN ABSOLUTE AUTO 0.03 K/mm3 (0.00-0.05); IMMATURE GRAN PERCENT AUTO 0.4 % (0.0-0.4); LYMPHOCYTES ABSOLUTE AUTO 2.8 K/mm3 (1.0-4.8); LYMPHOCYTES PERCENT AUTO 34.6 % (24.0-44.0); MEAN CORPUSCULAR HEMOGLOBIN 28.1 pg (28.0-32.0); MEAN CORPUSCULAR VOLUME 85.2 fl (83.0-99.0); MEAN PLATELET VOLUME 9.2 fl (9.4-12.3); MONOCYTES ABSOLUTE AUTO 0.7 K/mm3 (0.0-0.8); MONOCYTES PERCENT AUTO 8.7 % (0.0-8.0); NEUTROPHILS ABSOLUTE AUTO 4.2 K/mm3 (1.8-7.7); NEUTROPHILS PERCENT AUTO 51.7 % (41.0-71.0); PLATELET COUNT,PLT 252 K/mm3 (150-400); RED BLOOD CELL COUNT 5.01 M/mm3 (4.10-5.30); WHITE BLOOD CELL COUNT,WBC 8.03 K/mm3 (3.9-11.3)
[2023-08-27 16:19] LABS: RBC,URINE 0-5 /hpf (0-5); WBC,URINE 0-5 /hpf (0-5)
[2023-08-27 16:20] LABS: BACTERIA,URINE FEW /hpf (FEW); MUCUS,URINE FEW /hpf (FEW); SQUAMOUS EPITHELIAL CELLS,UR 0-5 /hpf (0-5)
[2023-08-27 16:46] LABS: A/G RATIO 1.1 (1-2); ALBUMIN 3.7 g/dl (3.4-5.0); ANION GAP 13.7 (5-15); BILIRUBIN TOTAL 0.4 mg/dL (0.2-1.0); BUN/CREATININE RATIO 13.8 (14-18); CALCIUM 9.2 mg/dL (8.5-10.1); CREATININE 0.8 mg/dL (0.55-1.02); EST CRCL DRUG DOSING (CG) 74.49 mL/min; POTASSIUM,K 3.7 mEq/L (3.5-5.1); PROTEIN TOTAL,TP 7.1 g/dl (6.4-8.2)
[2023-08-27] MEDS: Sodium Chloride 0.9% 10 ML Syringe FLUSH PRN (18:38)
[2023-08-27] MEDS: Sodium Chloride 0.9% 45 ML IV SCH (18:38)
[2023-08-27] MEDS: Iopamidol 755 Mg/ML 100 ML Bottle IVPUSH ONE (18:38)
[2023-08-27 20:33] VITALS: BP 129/79; PULSE 88
== END 2023-08-27 20:28 | disposition home or self-care (01) ==
LOC: JD.ED 13:33
DX: R10.13 Epigastric pain (principal); K21.9 Gastro-esophageal reflux disease without esophagitis; Z86.16 Personal history of COVID-19; Z86.19 Personal history of other infectious and parasitic diseases; Z91.048 Other nonmedicinal substance allergy status; Z88.0 Allergy status to penicillin; Z88.2 Allergy status to sulfonamides
CPT/HCPCS: 36415; 71275; 71275-26; 80053; 81001; 81003; 83690; 84484; 85025; 87086; 93005; 96361; 96374; 96375; 99285-25; A9270-GY; J2405; J3490; J7030; Q9967

== ENCOUNTER 2024-12-28 08:03 | Day surgery (SDC) | payer BC ==
[~2024-12-28 08:03] MED LIST changes: -Bisacodyl 5 MG Tab PO PRN; +Dexamethasone 4 MG/ML 5 ML MDV ONE; +Esmolol 100 MG/10 ML SDV ONE; +Glycopyrrolate 0.2 MG/ML 2 ML SDV ONE; +Ketamine HCL/NACL, ISO-OSM 50 MG/5 ML Syringe ONE; -Lactated Ringers 1,000 ML IV SCH; -Lidocaine 1% 6 ML ONE; -Lidocaine 1%/Sod Bicarbonate in NS 8.4% 1 ML Syringe IV PRN; -Magnesium Hydroxide 400 MG/5 ML Susp 30 ML Cup PO PRN; -Morphine 2 MG/ML Syringe IVPUSH PRN; -Morphine PF 10 MG/10 ML SDV ONE; -Naloxone 0.4 MG/ML SDV IVPUSH PRN; -Ondansetron 4 MG/2 ML SDV IVPUSH PRN; -Ondansetron 4 MG/2 ML SDV ONE; -Phenylephrine 1% 10 MG/ML SDV ONE; -Propofol 200 MG/20 ML SDV ONE; +Ropivacaine 0.5% 5 MG/ML 30 ML SDV ONE; -Sennosides 8.6 MG Tab PO PRN; +Sodium Chloride 0.9% 10 ML Syringe FLUSH SCH; +dexmedeTOMIDine HCl 200 MCG/2 ML SDV ONE; +propofoL 1,000 MG/100 ML 100 ML ONE
[2024-12-28] MEDS: oxyCODONE ER 10 MG TAB.ER PO ONE (08:31)
[2024-12-28] MEDS: Clindamycin Phosphate in D5W 900 MG in Premix Bag 1 BAG IV ONE (08:32)
[2024-12-28] MEDS: Lactated Ringers 1,000 ML IV SCH (08:32)
[2024-12-28] MEDS: Scopalamine 1mg/3day Transdermal Patch TRDERM PRN (08:51)
[2024-12-28] MEDS ORDERED: Ondansetron 4 MG/2 ML SDV IVPUSH PRN (08:56)
[2024-12-28] MEDS ORDERED: fentaNYL 100 MCG/2 ML SDV IVPUSH PRN (08:56)
[2024-12-28] MEDS ORDERED: Scopalamine 1mg/3day Transdermal Patch TOP ONE (08:57)
[2024-12-28] MEDS ORDERED: Lactated Ringers 1,000 ML ONE (09:34)
[2024-12-28] MEDS: Triamcinolone Acetonide 40 MG/ML 1 ML SDV ONE (10:40)
[2024-12-28] MEDS ORDERED: Phenylephrine 1% 10 MG/ML SDV ONE (10:51)
[2024-12-28 13:32] VITALS: BP 137/82; PULSE 85
== END 2024-12-28 14:30 | disposition home or self-care (01) ==
LOC: JD.SDS 08:03
PROVIDERS: ATTEND Orthopaedic Surgery
DX: M19.012 Primary osteoarthritis, left shoulder (principal); M18.12 Unilateral primary osteoarthritis of first carpometacarpal joint, left hand; I10 Essential (primary) hypertension; Z88.0 Allergy status to penicillin; Z88.5 Allergy status to narcotic agent; Z88.2 Allergy status to sulfonamides; Z79.899 Other long term (current) drug therapy
CPT/HCPCS: 20600; 23472; 64415; 76000; 97161; 97530; A9270; C1713; C1769; C1776; J0665; J0736; J1100; J1805; J2003; J2250; J2371; J2704; J2795; J3010; J3301; J3373; J7120; 01638; J1596; J3490

== ENCOUNTER 2025-01-03 21:56 | Emergency (ER) | payer BC ==
[2025-01-03 22:07] VITALS: BP 142/85; PULSE 91
== END 2025-01-03 22:40 | disposition home or self-care (01) ==
LOC: JD.ED 21:56
DX: S02.5XXA Fracture of tooth (traumatic), initial encounter for closed fracture (principal); J45.909 Unspecified asthma, uncomplicated; K21.9 Gastro-esophageal reflux disease without esophagitis; Z91.048 Other nonmedicinal substance allergy status; Z88.0 Allergy status to penicillin; Z88.6 Allergy status to analgesic agent; Z88.2 Allergy status to sulfonamides; Z88.5 Allergy status to narcotic agent; Z79.899 Other long term (current) drug therapy; Z79.82 Long term (current) use of aspirin; Z79.85 Long-term (current) use of injectable non-insulin antidiabetic drugs; W22.8XXA Striking against or struck by other objects, initial encounter; Y93.89 Activity, other specified
CPT/HCPCS: 99283; A9270